=== PATIENT | female | born 2000 | race Hispanic/Latino ===

== ENCOUNTER 2022-10-19 19:55 | Emergency (ER) | payer OTHER ==
[~2022-10-19] VITALS: Ht 157.5 cm; Wt 73.6 kg
[2022-10-19] MEDS ORDERED: birth control tab PO (20:02)
[2022-10-19] MEDS ORDERED: ONDANSETRON 4MG 2ML VIAL IV ONE (20:40)
[2022-10-19] MEDS ORDERED: MAALOX 30 ML SUSP *UDC PO ONE (20:40)
[2022-10-19] MEDS ORDERED: NS 1,000 ML IV ONE (20:40)
[2022-10-19] MEDS ORDERED: PANTOPRAZOLE 40MG VIAL IV ONE (20:40)
[2022-10-19 21:21] LABS: BASO % 0.5 % (0.0-1.0); EOS # 0.1 10^3/uL (0.0-0.5); HEMATOCRIT 42.3 % (36.0-47.0); HEMOGLOBIN 13.8 g/dl (12.0-15.5); LYMPH # 2.2 10^3/uL (1.5-5.0); LYMPH % 24.8 % (24.0-44.0); MEAN CORPUSCULAR HEMOGLOBIN 28.6 pg (27.0-33.0); MEAN CORPUSCULAR HGB CONC 32.6 g/dl (32.0-36.5); MEAN CORPUSCULAR VOLUME 87.8 fl (80.0-96.0); MONO # 0.6 10^3/uL (0.0-0.8); MONO % 7.3 % (2.0-8.0); NEUTROPHILS # 5.7 10^3/uL (1.5-8.5); NEUTROPHILS % 66.1 % (36.0-66.0); PLATELET COUNT, AUTOMATED 295 10^3/uL (150-450); RED BLOOD COUNT 4.82 10^6/uL (4.00-5.40); WHITE BLOOD COUNT 8.7 10^3/uL (4.0-10.0)
[2022-10-19 21:56] LABS: HCG, SERUM QUALITATIVE NEGATIVE (NEGATIVE); LIPASE 28 U/L (12-53)
[2022-10-19 21:58] LABS: ALBUMIN 3.9 G/DL (3.2-5.2); ALKALINE PHOSPHATASE 47 U/L (46-116); ALT/SGPT 17 U/L (7.0-40); AST/SGOT 10 U/L (<34); BILIRUBIN,DIRECT 0.1 MG/DL (<0.4); BILIRUBIN,TOTAL 0.3 MG/DL (0.3-1.2); BLOOD UREA NITROGEN 11 MG/DL (9-23); CALCIUM LEVEL 9.7 MG/DL (8.5-10.1); CARBON DIOXIDE LEVEL 26 MMOL/L (20-31); CHLORIDE LEVEL 104 MMOL/L (98-107); CREATININE FOR GFR 0.56 MG/DL (0.55-1.30); GLOMERULAR FILTRATION RATE > 60.0 (>60); GLUCOSE, FASTING 80 MG/DL (60-100); POTASSIUM SERUM 4.4 MMOL/L (3.5-5.1); SODIUM LEVEL 139 MMOL/L (136-145); TOTAL PROTEIN 7.4 G/DL (5.7-8.2)
[2022-10-19] MEDS ORDERED: ISOVUE-370 76% 100ML VIAL As Ordered ONE (22:00)
[2022-10-19] MEDS ORDERED: ONDA4TAB6 PO (23:08)
[2022-10-19 23:15] VITALS: BP 116/75; TEMP 98.4; O2SAT 99
== END 2022-10-19 23:26 | disposition home or self-care (01) ==
LOC: M ED 19:55
DX: R10.9 Unspecified abdominal pain (principal); R11.2 Nausea with vomiting, unspecified; R19.7 Diarrhea, unspecified; Z79.899 Other long term (current) drug therapy; Z79.3 Long term (current) use of hormonal contraceptives
CPT/HCPCS: 74177; 80048; 80076; 83690; 84703; 85025; 93041; 96361; 96374; 99284; C9113; J2405; Q9967

== ENCOUNTER 2023-12-20 23:21 | Emergency (ER) | payer OTHER ==
[~2023-12-20] VITALS: Ht 157.5 cm; Wt 84.7 kg
[~2023-12-20 23:21] MED LIST: ONDA-282 PO; birth control tab PO
[2023-12-20 23:24] VITALS: BP 116/57; TEMP 97.2; O2SAT 97
[2023-12-20] MEDS ORDERED: PHEN-239 PO (23:30)
[2023-12-20] MEDS ORDERED: HYDR-3363 PO (23:33)
[2023-12-21] MEDS: dexAMETHasone 20MG/5ML VIAL IV ONE (00:27)
[2023-12-21] MEDS: diphenhydrAMINE 50MG/ML VIAL IV ONE (00:27)
[2023-12-21] MEDS: METOCLOPRAMIDE INJ 10MG/2ML VIAL IV ONE (00:28)
[2023-12-21] MEDS ORDERED: CEPH500C PO (01:37)
[2023-12-21] MEDS ORDERED: CEPHALEXIN 500 MG CAP PO ONE (01:40)
== END 2023-12-21 01:53 | disposition home or self-care (01) ==
LOC: M ED 23:21
DX: J06.9 Acute upper respiratory infection, unspecified (principal)
CPT/HCPCS: 87486; 87581; 87633; 87798; 96374; 96375; 99284; J1100; J1200; J2765

== ENCOUNTER 2024-10-07 14:57 | Emergency (ER) | payer OTHER ==
[~2024-10-07] VITALS: Ht 157.5 cm; Wt 73.3 kg
[~2024-10-07 14:57] MED LIST changes: +CEPH500C PO; +HYDR-3363 PO; +PHEN37.511 PO
[2024-10-07] MEDS: IBUPROFEN 400 MG TAB PO ONE (16:07)
[2024-10-07 16:10] VITALS: BP 122/61; TEMP 98.6; O2SAT 97
== END 2024-10-07 16:12 | disposition home or self-care (01) ==
LOC: M ED 14:57
DX: U07.1 COVID-19 (principal)